=== PATIENT | female | born 1995 | race Caucasian/White ===

== ENCOUNTER 2019-01-15 15:22 | Emergency (ER) | payer BC, OTHER ==
[~2019-01-15] VITALS: Ht 149.9 cm; Wt 53.4 kg
--- NOTE | 2019-01-15 15:39 | NUR ---
PT TO ED FOR VAGINAL BLEEDING SINCE 12/28/2018 AND LOWER ABD PAIN RAD TO BILATERAL FLANKS. PT STATES HEAVY MENSTRUAL PERIOD THAT HASN'T STOPPED. DENIES URINARY SYMPTOMS. CONNECTED TO MONITORS. VSS. EDMD PRESENT FOR ASSESSMENT. AWAITING ORDERS.
--- NOTE | 2019-01-15 15:51 | NUR ---
pt to us
[2019-01-15 16:02] LABS: MICROSCOPIC AUTO
[2019-01-15 16:06] LABS: CULTURE INDICATED? NO
[2019-01-15 16:33] VITALS: BP 104/64
--- NOTE | 2019-01-15 16:34 | NUR ---
PT RESTING IN ROOM. VSS. NO NEEDS EXPRESSED. US COMPLETE AND LABS DRAWN. AWAITING RESULTS. PLAN FOR PELVIC EXAM.
[2019-01-15 16:38] LABS: BASOPHILS # (AUTO) 0.05 x10^3/uL (0-0.1); BASOPHILS % (AUTO) 1 % (0-1); EOSINOPHILS # (AUTO) 0.14 x10^3/uL (0-0.4); EOSINOPHILS % (AUTO) 2 % (1-7); LYMPHOCYTES # (AUTO) 2.32 x10^3/uL (1-3.4); LYMPHOCYTES % (AUTO) 33 % (22-44); MD NO; MEAN CORPUSCULAR HEMOGLOBIN 30.3 pg (27.0-34.8); MEAN CORPUSCULAR VOLUME 91.8 fL (80-100); MEAN PLATELET VOLUME 8.3 fL (7.4-10.4); MONOCYTES # (AUTO) 0.55 x10^3/uL (0.2-0.8); MONOCYTES % (AUTO) 8 % (2-9); NEUTROPHILS # (AUTO) 3.97 x10^3/uL (1.8-6.8); NEUTROPHILS % (AUTO) 57 % (42-75); PLATELET COUNT 314 x10^3/uL (130-400); RED BLOOD COUNT 4.81 x10^6/uL (3.82-5.3); RED CELL DISTRIBUTION WIDTH 12.9 % (9.6-15.2)
[2019-01-15 16:48] LABS: ALANINE AMINOTRANSFERASE 90 U/L (12-78); ALBUMIN 4.1 g/dL (3.4-5.0); ANION GAP 5 mmol/L (5-15); CALCIUM 8.8 mg/dL (8.5-10.1); CHLORIDE 104 mmol/L (98-107); CREATININE 0.59 mg/dL (0.55-1.02)
[2019-01-15 16:53] LABS: ALKALINE PHOSPHATASE 70 U/L (45-117); BILIRUBIN,TOTAL 0.5 mg/dL (0.2-1.0); TOTAL PROTEIN 7.7 g/dL (6.4-8.2)
== END 2019-01-15 17:45 | disposition home or self-care (01) ==
LOC: ED 16:45
DX: N92.1 Excessive and frequent menstruation with irregular cycle (principal)
CPT/HCPCS: 36415; 76830; 80053; 81001; 84703; 85025; 99284